=== PATIENT | female | born 1950 | race Caucasian/White ===

== ENCOUNTER 2016-10-26 07:58 | Day surgery (SDC) | payer MEDICARE, OTHER ==
--- NOTE | ~2016-10-26 | EGD ---
EGD REPORT [facility] [address] [address] NAME: ELIU QUAN : [birth year] STATUS : REG [facility]#: [id number] AGE: 66 ADM/REG DATE : 10/26/16 MR#: [id number] REPORT SERV DATE: 10/26/16 DICTATED BY: GRACE SKINNER DATE: 10/26/16 REPORT STATUS : Draft TRANSCRIBED BY: [facility] DATE: 10/26/16 [facility] Patient Name: Eliu Quan Date of : 1950 Attending MD: GRACE SKINNER MD Procedure Date No Time: 10/26/2016 Procedure: Colonoscopy Indications: FH of Colonic Polyps - 1st degree relative Referring MD: LUCIE BACH Medicines: as per anesthesia Complications: No immediate complications. Procedure: Pre-Anesthesia Assessment: - ASA Grade Assessment: III - A patient with severe systemic disease. After I obtained informed consent, the scope was passed under direct vision. Throughout the procedure, the patient's blood pressure, pulse, and oxygen saturations were monitored continuously. The PCF [id number] was introduced through the anus and advanced to the cecum, identified by appendiceal orifice and ileocecal valve. The colonoscopy was performed without difficulty. The patient tolerated the procedure well. The quality of the bowel preparation was adequate to identify polyps. Findings: The perianal and digital rectal examinations were normal. A few small and large-mouthed diverticula were found in the sigmoid colon, in the descending colon and in the transverse colon. Internal hemorrhoids were found during endoscopy and were mild. Impression: - Diverticulosis in the sigmoid colon, in the descending colon and in the transverse colon. - Internal hemorrhoids. Recommendation: - Repeat colonoscopy in 5 years for surveillance. Procedure Code(s): --- Professional --- 64094, Colonoscopy, flexible, proximal to splenic flexure; diagnostic, with or without collection of specimen(s) by brushing or washing, with or without colon decompression (separate procedure) Diagnosis Code(s): --- Professional --- K64.8, Other hemorrhoids K57.30, Diverticulosis of large intestine without EGD REPORT [facility] [address] [facility] [address] NAME: ELIU QUAN : [birth year] STATUS : REG [facility] PAT#: [id number] AGE: 66 ADM/REG DATE : 10/26/16 MR#: [id number] REPORT SERV DATE: 10/26/16 DICTATED BY: GRACE SKINNER. DATE: 10/26/16 REPORT STATUS : Draft TRANSCRIBED BY: [employer] DATE: 10/26/16 perforation or abscess without bleeding Z83.71, Family history of colonic polyps CPT copyright 2013 [employer]. All rights reserved. The codes documented in this report are preliminary and upon irrigator gravity flow review may be revised to meet current compliance requirements. GRACE SKINNER MD 10/26/2016 10:48 AM This report has been signed electronically. Number of Addenda: 0 Note Initiated On: 10/26/2016 10:18 AM Scope Withdrawal Time 0 hours 6 minutes 59 seconds [id number] [facility] [place] [id number]
[~2016-10-26 07:58] MED LIST: ACET500CAP PO; ADVIL PO; ASAB PO; DEMA10T PO; FISH-EPA1000 MG PO; FLEX PO; GLUCPH PO; HYDROCHLOROT25 MG PO; JANUMET XR 1001 EACH PO; LEVOTHYROXIN150 MCG PO; LEVOTHYROXIN175 MCG PO; MULTIVIT/MIN PO; OS500+D PO; PRIN10 PO; PROAIR HFA INH; VITAMIN D1000 UNI1 PO; ZETIA PO; [UNRECOGNIZED DRUG - OTHER]
== END 2016-10-26 23:59 | disposition home health service (06) ==
LOC: DMU 07:58
PROVIDERS: Internal Medicine Gastroenterology
PROC: 0DJD8ZZ Inspection of Lower Intestinal Tract, Via Natural or Artificial Opening Endoscopic (ICD-10-PCS; principal; 2016-10-26 09:30)
DX: Z12.11 Encounter for screening for malignant neoplasm of colon (principal); K57.30 Diverticulosis of large intestine without perforation or abscess without bleeding; K64.8 Other hemorrhoids; E11.9 Type 2 diabetes mellitus without complications; I10 Essential (primary) hypertension; J45.909 Unspecified asthma, uncomplicated; M19.90 Unspecified osteoarthritis, unspecified site; E03.9 Hypothyroidism, unspecified; Z83.71 Family history of colonic polyps; Z88.2 Allergy status to sulfonamides; Z88.5 Allergy status to narcotic agent; Z88.8 Allergy status to other drugs, medicaments and biological substances; Z98.890 Other specified postprocedural states
CPT/HCPCS: 82962